=== PATIENT | male | born 1970 | race Two or more races ===

== ENCOUNTER 2017-09-11 10:12 | Inpatient (IN) | payer SELFPAY ==
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
[2017-09-11 11:28] LABS: Hematocrit 39 % (42-52); Hemoglobin 13.1 g/dl (14.0-18.0); Mean Corpuscular HGB Conc 34 g/dl (31-36); Mean Corpuscular Hemoglobin 33 pg (27-31); Mean Corpuscular Volume 99 fL (80-94); Mean Platelet Volume 10 um3 (7.4-10.4); Red Blood Count 3.94 10^6/ul (4.0-5.4); Red Cell Distribution Width 13 % (10.5-15); White Blood Count 13.1 10^3/ul (3.5-10.8)
[2017-09-11 11:30] LABS: Add Diff/Slide Review? Slide Review Added; Comments Flag Yes
[2017-09-11 11:33] LABS: Urine Bacteria Absent (Absent); Urine Bilirubin Negative (Negative); Urine Glucose Negative (Negative); Urine Nitrite Negative (Negative)
[2017-09-11 11:43] LABS: ALT 38 U/L (7-52); AST 55 U/L (13-39); Albumin 4.6 g/dL (3.2-5.2); Alkaline Phosphatase 73 U/L (34-104); Anion Gap 12 mmol/L (2-11); BUN/Creatinine Ratio 26.3 (8-20); Blood Urea Nitrogen 41 mg/dL (6-24); CO2 Carbon Dioxide 24 mmol/L (22-32); Calcium 10.1 mg/dL (8.6-10.3); Chloride 92 mmol/L (101-111); EGFR African American 61.7 (>60); EGFR Non-African American 47.9 (>60); Glucose 82 mg/dL (70-100); Potassium 4.6 mmol/L (3.5-5.0); Sodium 128 mmol/L (133-145); Total Protein 7.6 g/dL (6.4-8.9)
[2017-09-11 11:46] LABS: Benzodiazepine Urine Screen None Detected (None Detect)
[2017-09-11 12:14] LABS: Acetaminophen < 15 mcg/mL; Alcohol < 10 mg/dL (<10); Salicylate < 2.50 mg/dL (<30)
[2017-09-11] MEDS ORDERED: Sulfamethox/Trimethoprim DS 800/160* TAB PO ONE (12:58)
[2017-09-11] MEDS ORDERED: LORazepam TAB(*) 1 MG PO ONE ×3 (13:00→19:24)
[2017-09-11] MEDS: NS 0.9% 1000 ML* 2,000 ML IV ONE ×2 (13:00→13:07)
[2017-09-11 13:26] LABS: Magnesium 1.6 mg/dL (1.9-2.7)
[2017-09-11] MEDS ORDERED: Magnesium Chloride EC TAB* 64 MG PO ONE (13:38)
[2017-09-11] MEDS ORDERED: NS 0.9% 1000 ML* 1,000 ML IV ONE (15:24)
[2017-09-11] MEDS ORDERED: Mouth Piece, Nicotine* 1 EACH CARTRIDGE ONE (16:10)
[2017-09-11] MEDS ORDERED: Nicotine Inhaler* 10 MG AMP ONE (16:10)
[2017-09-11] MEDS: Nicotine Inhaler* 10 MG AMP INH ONE ×2 (16:13→19:54)
[2017-09-11] MEDS ORDERED: Ondansetron INJ* 2 MG/ML VIAL IV PRN (20:15)
[2017-09-11] MEDS ORDERED: Thiamine IV* 100 MG, Folic Acid IV* 1 MG, Multiple Vitamin IV ADULT* 10 ML in NS 0.9% 1... IV ONE (20:15)
[2017-09-11] MEDS ORDERED: Magnesium Sulfate 2 GM IV* 2 GM/50 ML BAG IVPB ONE (20:15)
[2017-09-11] MEDS ORDERED: Acetaminophen TAB* 325 MG PO PRN (20:15)
[2017-09-11] MEDS ORDERED: LORazepam INJ* 2 MG/ML 1 ML VIAL IV PUSH ONE (20:22)
[2017-09-11 20:42] LABS: C Reactive Protein 10.33 mg/L (< 5.00)
[2017-09-11] MEDS ORDERED: ceFAZolin 2 GM PREMIX (*) 2 GM/50 ML BAG IVPB ONE (20:54)
[2017-09-11] MEDS ORDERED: LORazepam INJ* 2 MG/ML 1 ML VIAL IV PUSH SCH (21:00)
[2017-09-11] MEDS: ceFAZolin 2 GM PREMIX (*) 2 GM/50 ML BAG IVPB SCH (21:03)
[2017-09-11 21:06] LABS: Comments Flag Yes; Hematocrit 35 % (42-52); Hemoglobin 11.6 g/dl (14.0-18.0); Mean Corpuscular HGB Conc 34 g/dl (31-36); Mean Corpuscular Hemoglobin 33 pg (27-31); Mean Corpuscular Volume 99 fL (80-94); Mean Platelet Volume 10 um3 (7.4-10.4); Red Blood Count 3.47 10^6/ul (4.0-5.4); Red Cell Distribution Width 14 % (10.5-15); White Blood Count 8.5 10^3/ul (3.5-10.8)
[2017-09-11 21:09] LABS: Erythrocyte Sed Rate 10 mm/Hr (0-14)
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
--- NOTE | 2017-09-11 21:12 | RAD ---
INDICATION: Left ankle swelling COMPARISON: None TECHNIQUE: AP and lateral views were obtained. FINDINGS: The bony structures, joint spaces, and soft tissues are normal for age. IMPRESSION: NEGATIVE EXAMINATION.
[2017-09-11 21:16] LABS: EGFR Non-African American 51.3 (>60)
[2017-09-11] MEDS ORDERED: LORazepam INJ* 2 MG/ML 1 ML VIAL ONE ×3 (21:19→22:38)
[2017-09-11] MEDS ORDERED: LORazepam INJ* 2 MG/ML 1 ML VIAL IV ONE (21:19)
[2017-09-11] MEDS ORDERED: Ziprasidone IM INJ* 20 MG/ML VIAL IM ONE (22:19)
[2017-09-11] MEDS ORDERED: NS 0.9% 1000 ML* 1,000 ML IV SCH (23:30)
[2017-09-12] MEDS: Heparin VIAL(*) 5000 UNITS/ML VIAL (FIVE THOUSAND) SUBCUT SCH ×4 (00:01→20:56)
[2017-09-12] MEDS: Nicotine PATCH 21 MG/24 HR* PATCH TRANSDERM SCH ×2 (00:01→11:22)
[2017-09-12] MEDS: LORazepam INJ* 2 MG/ML 1 ML VIAL IV SCH ×2 (00:01→05:33)
[2017-09-12] MEDS: Metoprolol Tartrate TAB* 50 mg PO SCH ×3 (00:01→20:52)
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
[2017-09-12] MEDS: NS 0.9% 1000 ML* 1,000 ML IV SCH ×3 (00:32→19:16)
[2017-09-12] MEDS ORDERED: LORazepam INJ* 2 MG/ML 1 ML VIAL ONE (01:52)
[2017-09-12] MEDS ORDERED: Ziprasidone IM INJ* 20 MG/ML VIAL IM ONE (03:27)
[2017-09-12] MEDS ORDERED: Dexmedetomidine* 400 MCG in NS 0.9% 100 ML* 96 ML IVPB SCH (03:30)
[2017-09-12 04:11] LABS: Urine Bacteria Absent (Absent); Urine Bilirubin Negative (Negative); Urine Glucose Negative (Negative); Urine Nitrite Negative (Negative)
[2017-09-12 04:54] LABS: Hematocrit 29 % (42-52); Hemoglobin 9.7 g/dl (14.0-18.0); Mean Corpuscular HGB Conc 34 g/dl (31-36); Mean Corpuscular Hemoglobin 34 pg (27-31); Mean Corpuscular Volume 100 fL (80-94); Mean Platelet Volume 9 um3 (7.4-10.4); Red Blood Count 2.86 10^6/ul (4.0-5.4); Red Cell Distribution Width 13 % (10.5-15); White Blood Count 4.9 10^3/ul (3.5-10.8)
[2017-09-12 04:55] LABS: Comments Flag Yes
[2017-09-12 05:25] LABS: BUN/Creatinine Ratio 20.3 (8-20); Calcium 8.1 mg/dL (8.6-10.3); EGFR African American 81.1 (>60); EGFR Non-African American 63.1 (>60); Potassium 3.6 mmol/L (3.5-5.0)
[2017-09-12] MEDS: ceFAZolin 2 GM PREMIX (*) 2 GM/50 ML BAG IVPB SCH ×3 (07:01→20:52)
[2017-09-12] MEDS: Folic Acid TAB* 1 MG PO SCH (11:11)
[2017-09-12] MEDS: Thiamine TAB* 100 MG TAB PO SCH (11:11)
[2017-09-12] MEDS: Multivitamins/Minerals TAB PO SCH (11:11)
--- NOTE | 2017-09-12 13:06 | PN ---
Subjective Date of Service: 09/12/17 Interval History: Seen this AM Events reviewed Received 24 mg of ativan since admission before geodon initiated Agitated overnight and aggressive requiring physical and chemical restraints Pt sedated and cannot relay meaningful ROS Objective Active Medications: Folic Acid (Folvite Tab*) 1 mg PO DAILY [facility] Last Admin: 09/12/17 11:11 Dose: 1 mg Heparin Sodium (Porcine) (Heparin Vial(*)) 5,000 units SUBCUT Q8HR [facility] Last Admin: 09/12/17 07:01 Dose: 5,000 units Cefazolin Sodium/Dextrose (Kefzol 2 Gm Premix(*)) 2 gm in 50 mls @ 100 mls/hr IVPB Q8H [facility] Last Admin: 09/12/17 07:01 Dose: 100 mls/hr Sodium Chloride (Ns 0.9% 1000 Ml*) 1,000 mls @ 125 mls/hr IV PER RATE [facility] Last Admin: 09/12/17 09:14 Dose: 125 mls/hr Dexmedetomidine HCl 400 mcg/ (Sodium Chloride) 100 mls @ 5.82 mls/hr IVPB Q17H [facility]; 0.3 MCG/KG/HR PRN Reason: Protocol Last Admin: 09/12/17 03:35 Dose: 5.8 mls/hr Lorazepam (Ativan Inj*) 0 - 6 mg IV PUSH .PER [facility] PROTOCOL [facility] PRN Reason: Protocol Metoprolol Tartrate (Lopressor Tab*) 50 mg PO BID [facility] Last Admin: 09/12/17 11:14 Dose: 50 mg Multivitamins/Minerals (Theragran/Minerals Tab*) 1 tab PO DAILY [facility] Last Admin: 09/12/17 11:11 Dose: 1 tab Nicotine (Nicotine Inhaler*) 10 mg INH Q2H PRN PRN Reason: CRAVING Nicotine (Nicotine Patch 21 Mg/24 Hr*) 1 patch TRANSDERM DAILY [facility] Last Admin: 09/12/17 11:22 Dose: 1 patch Ondansetron HCl (Zofran Inj*) 4 mg IV Q6H PRN PRN Reason: NAUSEA Pharmacy Profile Note (Nicotine Patch Removal Note*) 1 note PATCH OFF 2100 [facility] Thiamine HCl (Vitamin B-1 Tab*) 100 mg PO DAILY [facility] Last Admin: 09/12/17 11:11 Dose: 100 mg Vital Signs - 8 hr 09/12/17 09/12/1709/12/17 05:06 05:15 05:30 Temperature Pulse Rate 97 98 88 Respiratory Rate Blood Pressure 105/52 107/60 (mmHg) O2 Sat by Pulse 94 95 97 Oximetry 09/12/17 09/12/17 09/12/17 05:33 05:45 06:00 Temperature 99.0 F Pulse Rate 84 84 Respiratory 11 26 Rate Blood Pressure 111/63 116/70 (mmHg) O2 Sat by Pulse 97 96 Oximetry 09/12/17 09/12/17 09/12/17 06:15 06:30 06:45 Temperature Pulse Rate 79 74 79 Respiratory Rate Blood Pressure 106/60 119/73 119/70 (mmHg) O2 Sat by Pulse 97 98 97 Oximetry 09/12/17 09/12/17 09/12/17 06:59 07:00 07:15 Temperature 97.7 F Pulse Rate 78 77 73 Respiratory 26 Rate Blood Pressure 107/59 113/67 (mmHg) O2 Sat by Pulse 97 97 98 Oximetry 09/12/17 09/12/17 09/12/17 07:30 07:40 07:45 Temperature Pulse Rate 76 76 73 Respiratory Rate Blood Pressure 113/70 114/67 (mmHg) O2 Sat by Pulse 97 97 98 Oximetry 09/12/17 09/12/17 09/12/17 07:46 07:57 08:00 Temperature 97.5 F 97.4 F Pulse Rate 72 Respiratory 27 Rate Blood Pressure 107/61 (mmHg) O2 Sat by Pulse 98 Oximetry 09/12/17 09/12/17 09/12/17 08:15 08:31 08:45 Temperature Pulse Rate 73 85 75 Respiratory Rate Blood Pressure 107/63 137/93 132/80 (mmHg) O2 Sat by Pulse 97 100 99 Oximetry 09/12/17 09/12/17 09/12/17 08:50 09:00 09:13 Temperature 97.2 F Pulse Rate 74 72 69 Respiratory 26 Rate Blood Pressure 107/67 (mmHg) O2 Sat by Pulse 99 98 98 Oximetry 09/12/17 09/12/17 09/12/17 09:15 09:30 09:38 Temperature Pulse Rate 69 66 Respiratory Rate Blood Pressure 106/69 103/68 (mmHg) O2 Sat by Pulse 98 98 99 Oximetry 09/12/17 09/12/17 09/12/17 09:45 10:00 10:01 Temperature 97.1 F Pulse Rate 67 69 69 Respiratory 24 Rate Blood Pressure 102/68 123/86 (mmHg) O2 Sat by Pulse 98 100 100 Oximetry 09/12/17 09/12/17 09/12/17 10:15 10:30 10:45 Temperature Pulse Rate 68 66 89 Respiratory Rate Blood Pressure 115/68 114/69 123/105 (mmHg) O2 Sat by Pulse 98 99 99 Oximetry 09/12/17 09/12/17 09/12/17 10:55 11:00 11:04 Temperature 97.5 F Pulse Rate Respiratory 22 Rate Blood Pressure 134/90 (mmHg) O2 Sat by Pulse Oximetry 09/12/17 09/12/17 09/12/17 11:16 11:31 11:46 Temperature Pulse Rate Respiratory 22 16 18 Rate Blood Pressure 141/88 85/62 136/81 (mmHg) O2 Sat by Pulse Oximetry 09/12/17 09/12/17 09/12/17 11:49 12:00 12:15 Temperature 97.1 F Pulse Rate Respiratory 23 28 Rate Blood Pressure 119/79 122/81 (mmHg) O2 Sat by Pulse Oximetry 09/12/17 09/12/17 09/12/17 12:23 12:30 12:45 Temperature Pulse Rate Respiratory 24 24 25 Rate Blood Pressure 123/84 118/81 (mmHg) O2 Sat by Pulse Oximetry 09/12/17 09/12/17 12:49 12:51 Temperature Pulse Rate Respiratory 23 23 Rate Blood Pressure (mmHg) O2 Sat by Pulse Oximetry Oxygen Devices in Use Now: None Appearance: sedated, lying flat, NAD Eyes: No Scleral Icterus, PERRLA Ears/Nose/Mouth/Throat: Clear Oropharnyx Neck: NL Appearance and Movements; NL JVP, Trachea Midline Respiratory: Symmetrical Chest Expansion and Respiratory Effort, - - rhoncgi throughout Cardiovascular: RRR Abdominal: NL Sounds; No Tenderness; No Distention, No Hepatosplenomegaly Lymphatic: No Cervical Adenopathy, No Axillary Adenopathy Extremities: No Edema, - - left AKA Skin: - - minimal erythema of right foot extending to ankle Neurological: - - AOx0 Result Diagrams: 09/12/17 04:39 09/12/17 04:39 Assess/Plan/Problems-Billing Assessment: 47 yo M h/o bipolar d/o, alcohol abuse, presents with visual and auditory hallucinations in setting of possible infection and alcohol withdrawal - Patient Problems (1) Alcohol withdrawal delirium Comment: d/c standing ativan d/c connie c/w [facility] protocol thiamine and folate (2) Cellulitis Comment: Improved based on exam from yesterday I do not see e/o sepsis - resolved since admission c/w IV abc and narrow to oral when awake and able to tolerate (3) Bipolar disorder Comment: c/b paroid behavior and hallucinations in setting of comorbid alcohol abuse disorder Psych consult once able after sedating medication titrated down (4) Hypertension Comment: c/w metoprolol last seen by PCP >1.5 yrs prior (5) DVT prophylaxis Comment: [facility]
[2017-09-12] MEDS: Nicotine Inhaler* 10 MG AMP INH PRN ×2 (16:27→22:56)
[2017-09-12] MEDS: Mouth Piece, Nicotine* 1 EACH CARTRIDGE ONE ×2 (16:27→22:55)
[2017-09-12] MEDS ORDERED: Nicotine Patch Removal NOTE PATCH OFF SCH (21:00)
[2017-09-12] MEDS ORDERED: Mouth Piece, Nicotine* 1 EACH CARTRIDGE ONE (22:53)
[2017-09-12] MEDS: LORazepam INJ* 2 MG/ML 1 ML VIAL IV PUSH SCH (23:37)
[2017-09-13] MEDS: traMADol TAB* 50 MG PO PRN ×2 (00:10→08:13)
[2017-09-13] MEDS: ceFAZolin 2 GM PREMIX (*) 2 GM/50 ML BAG IVPB SCH ×2 (04:22→13:20)
[2017-09-13] MEDS: NS 0.9% 1000 ML* 1,000 ML IV SCH (04:22)
[2017-09-13] MEDS: Heparin VIAL(*) 5000 UNITS/ML VIAL (FIVE THOUSAND) SUBCUT SCH (04:22)
[2017-09-13] MEDS: Nicotine Inhaler* 10 MG AMP INH PRN (04:28)
[2017-09-13] MEDS ORDERED: Omeprazole CAP* 20 MG ONE (04:36)
[2017-09-13] MEDS: Omeprazole CAP* 20 MG PO SCH ×2 (04:38→08:11)
[2017-09-13] MEDS: LORazepam INJ* 2 MG/ML 1 ML VIAL IV PUSH SCH ×2 (04:38→08:17)
[2017-09-13] MEDS: Metoprolol Tartrate TAB* 50 mg PO SCH (08:11)
[2017-09-13] MEDS: Folic Acid TAB* 1 MG PO SCH (08:11)
[2017-09-13] MEDS: Multivitamins/Minerals TAB PO SCH (08:11)
[2017-09-13] MEDS: Thiamine TAB* 100 MG TAB PO SCH (08:11)
[2017-09-13] MEDS: Nicotine PATCH 21 MG/24 HR* PATCH TRANSDERM SCH (08:18)
[2017-09-13] MEDS ORDERED: Influenza VAC *QUAD* 2017-18* 0.5 ML SYRINGE IM ONE (09:00)
[2017-09-13] MEDS ORDERED: Pneumococcal *Vac Polyvalent 0.5 ML VIAL IM ONE (09:00)
[2017-09-13 13:29] VITALS: BP 135/103
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
--- NOTE | 2017-09-14 11:04 | DS ---
CC: Nolan Weldon MD* DISCHARGE SUMMARY: DATE OF ADMISSION: 09/11/17 DATE OF DISCHARGE: 09/13/17 PRIMARY CARE PROVIDER: Nolan Weldon MD PRIMARY DIAGNOSIS: Alcohol use disorder complicated by delirium tremens. SECONDARY DIAGNOSIS: Includes hypertension. MEDICATIONS AT DISCHARGE: Include: 1. Omeprazole 20 mg daily. 2. Multivitamin 1 tablet daily. 3. Zantac OTC 1 tablet as needed daily. 4. Metoprolol tartrate 50 mg twice daily. 5. Lisinopril 10 mg daily. 6. Amlodipine 10 mg daily. 7. Antabuse 250 mg daily. HISTORY OF PRESENT ILLNESS AND HOSPITAL COURSE: This is a 47-year-old man, past medical history as outlined in the history of present illness on the day of admission, presented to the hospital after decreasing alcohol use at home of his own accord with ensuing days complicated by withdrawal symptoms including visual hallucinations and paranoia on the day of admission. For details surrounding the events leading to the patient's admission, please refer to the history of present illness on the day of admission. The patient had significant agitation after admitted to the hospital in the setting of delirium tremens, required 24 mg of Ativan in the ICU before initiation of Geodon IV drip. This medication was discontinued the following day and the patient returned to a normal level of consciousness with minimal use of benzodiazepines over the ensuing 48 hours. On the day of discharge, the patient was interactive , pleasant, and in no apparent distress. Psychiatric consultation was obtained and their evaluation, the patient does not fully meet criteria for bipolar disorder at this time nor has events reported by his primary care provider in the past. I agree with this finding after our interactions during this hospital stay as well as review of events leading to this diagnosis. He was not discharged on any mood stabilizer. The patient was interested in pursuing rehabilitation, for which he was referred to [facility] in [place]. Additionally, the patient requested "a medication that would make it difficult for me to drink alcohol", for which he was prescribed Antabuse on discharge. There were no other complications during the course of the hospital stay. The patient did have amlodipine added to his antihypertensive regimen for persistently high blood pressures. At followup, please; 1. Follow up on success with alcohol abstinence. 2. Follow up blood pressure and new medications. 3. No other specific labs or vitals that need followup. Reasons to return to the hospital included but not limited to recurrent or worsening symptoms including hallucinations, altered sensorium, loss of consciousness, fevers, chills, night sweats, chest pain, shortness of breath, nausea, vomiting, inability to tolerate medications discussed with the patient. He acknowledged understanding. TIME SPENT: Greater than 60 minutes was spent in the discharge of this patient , greater than half was spent [id number] with the patient. [id number]/[facility] #: [id number] JANNIE
== END 2017-09-13 13:25 | disposition home or self-care (01) | DRG 897 ==
LOC: ED 10:12 → ICU 20:10 → MED 09-12 20:25
PROVIDERS: ADMIT Hospitalist; ATTEND Internal Medicine
DX: F10.231 Alcohol dependence with withdrawal delirium (principal); L03.115 Cellulitis of right lower limb; I10 Essential (primary) hypertension; F17.210 Nicotine dependence, cigarettes, uncomplicated; K21.9 Gastro-esophageal reflux disease without esophagitis; M17.11 Unilateral primary osteoarthritis, right knee; F12.90 Cannabis use, unspecified, uncomplicated; R40.2362 Coma scale, best motor response, obeys commands, at arrival to emergency department; R40.2142 Coma scale, eyes open, spontaneous, at arrival to emergency department; F31.9 Bipolar disorder, unspecified; Y90.9 Presence of alcohol in blood, level not specified; R40.2252 Coma scale, best verbal response, oriented, at arrival to emergency department; Z89.522 Acquired absence of left knee; Z81.1 Family history of alcohol abuse and dependence; Z82.5 Family history of asthma and other chronic lower respiratory diseases; Z82.49 Family history of ischemic heart disease and other diseases of the circulatory system
CPT/HCPCS: 36415; 80048; 80053; 80307; 80320; 80329; 81003; 81015; 82565; 82570; 83605; 83735; 84145; 84300; 84443; 84520; 85025; 85610; 85652; 85730; 86140; 87040; 87086; 87491; 87591; 90686; 90732; 93005; 94760; A9270-GY; G0480; J0690; J1644; J2060; J3475; J3486

== ENCOUNTER 2018-04-25 21:46 | Inpatient (IN) | payer OTHER ==
[2018-04-25] MEDS ORDERED: LORazepam INJ* 2 MG/ML 1 ML VIAL IV PUSH ONE ×2 (22:43→22:58)
[2018-04-25] MEDS ORDERED: Thiamine IV* 100 MG, Folic Acid IV* 1 MG, Multiple Vitamin IV ADULT* 10 ML in NS 0.9% 1... IV ONE (22:43)
[2018-04-25 22:58] LABS: ABS Basophils 0.3 10^3/ul (0-0.2); ABS Eosinophils 0.1 10^3/ul (0-0.6); ABS Lymphocytes 2.5 10^3/ul (1.0-4.8); ABS Monocytes 0.5 10^3/ul (0-0.8); ABS Neutrophils 3.7 10^3/ul (1.5-7.7); ABS Nucleated RBC 0 10^3/ul; Eosinophil % 1.8 % (0-6); Hematocrit 39 % (42-52); Hemoglobin 13.2 g/dl (14.0-18.0); Lymphocyte % 35.5 % (25-47); Mean Corpuscular HGB Conc 34 g/dl (31-36); Mean Corpuscular Hemoglobin 34 pg (27-31); Mean Corpuscular Volume 99 fL (80-94); Mean Platelet Volume 7.1 um3 (7.4-10.4); Nucleated Red Blood Cells % 0; Platelet Count 157 10^3/ul (150-450); Red Cell Distribution Width 14 % (10.5-15); White Blood Count 7.1 10^3/ul (3.5-10.8)
[2018-04-25] MEDS ORDERED: Metoprolol Tartrate TAB* 25 MG PO ONE (22:58)
[2018-04-25] MEDS ORDERED: Nicotine PATCH 21 MG/24 HR* PATCH TRANSDERM ONE (23:01)
[2018-04-25 23:07] LABS: INR 0.87 (0.77-1.02)
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
[2018-04-25] MEDS ORDERED: Ondansetron INJ* 2 MG/ML VIAL IV ONE (23:12)
[2018-04-25 23:16] LABS: EGFR Non-African American 73.3 (>60)
[2018-04-26] MEDS ORDERED: Al Hydrox/Mg Hydrox/Simet LIQ* 30 ML UDC PO PRN (00:12)
[2018-04-26] MEDS ORDERED: Docusate CAP* 100 MG PO PRN (00:12)
[2018-04-26] MEDS ORDERED: Senna TAB PO PRN (00:12)
[2018-04-26] MEDS ORDERED: Ondansetron INJ* 2 MG/ML VIAL IV PRN (00:12)
[2018-04-26] MEDS ORDERED: Thiamine IV* 100 MG/ML 2 ML VIAL IM ONE (00:15)
[2018-04-26] MEDS: Acetaminophen TAB* 325 MG PO PRN ×2 (01:42→20:29)
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
[2018-04-26] MEDS: NS 0.9% 1000 ML* 1,000 ML IV SCH ×3 (02:07→18:01)
--- NOTE | 2018-04-26 07:19 | RAD ---
INDICATION: Left rib pain after a fall COMPARISON: None. TECHNIQUE: 4 views of the left ribs were obtained. FINDINGS: No fracture or significant focal osseous abnormality is seen. No pneumothorax is apparent. Limited views demonstrate grossly clear lungs. IMPRESSION: No radiographically apparent displaced rib fracture or pneumothorax. If the patient's symptoms persist, follow-up imaging is recommended.
[2018-04-26] MEDS: Metoprolol Tartrate TAB* 50 mg PO SCH ×2 (07:49→20:28)
[2018-04-26] MEDS: LORazepam TAB(*) 1 MG PO SCH ×3 (07:49→13:52)
[2018-04-26] MEDS: Thiamine TAB* 100 MG TAB PO SCH (07:49)
[2018-04-26] MEDS: Folic Acid TAB* 1 MG PO SCH (07:49)
[2018-04-26] MEDS: Multivitamins/Minerals TAB PO SCH (07:49)
[2018-04-26] MEDS ORDERED: Nicotine PATCH 21 MG/24 HR* PATCH TRANSDERM PRN (13:35)
[2018-04-26] MEDS: Nicotine Inhaler* 10 MG AMP INH PRN ×2 (13:52→18:06)
[2018-04-26] MEDS: Mouth Piece, Nicotine* 1 EACH CARTRIDGE INH PRN ×2 (13:52→18:06)
--- NOTE | 2018-04-26 15:25 | PN ---
Subjective Date of Service: 04/26/18 Interval History: Mr. Simon denies complaint today other than craving for nicotine. He specifically denies chest pain, SOB, nausea, or abdominal pain. Objective Active Medications: Acetaminophen (Tylenol Tab*) 650 mg PO Q4H PRN Al Hydrox/Mg Hydrox/Simethicone (Maalox Plus*) 30 ml PO Q6H PRN Device (Nicotine Mouth Piece*) 1 each INH .USE WITH NICOTROL PRN Docusate Sodium (Colace Cap*) 100 mg PO BID PRN Folic Acid (Folvite Tab*) 1 mg PO DAILY HOWIE Sodium Chloride (Ns 0.9% 1000 Ml*) 1,000 mls @ 125 mls/hr IV PER RATE HOWIE Lorazepam (Ativan Tab(*)) 0 - 6 mg PO .PER [facility] PROTOCOL HOWIE; Protocol Metoprolol Tartrate (Lopressor Tab*) 50 mg PO Q12HR [facility] Multivitamins/Minerals (Theragran/Minerals Tab*) 1 tab PO DAILY HOWIE Nicotine (Nicotine Inhaler*) 10 mg INH Q2H PRN Nicotine (Nicotine Patch 21 Mg/24 Hr*) 1 patch TRANSDERM DAILY@0800 PRN Nicotine Polacrilex (Nicotine Gum*) 2 mg PO Q2H PRN Ondansetron HCl (Zofran Inj*) 4 mg IV Q4H PRN Senna (Senokot Tab*) 1 tab PO BID PRN Thiamine HCl (Vitamin B-1 Tab*) 100 mg PO DAILY [facility] Vital Signs: Temp Pulse Resp BP Pulse Ox 98.6 F 89 17 145/98 99 04/26/18 15:19 04/26/18 15:19 04/26/18 15:19 04/26/18 15:19 04/26/18 15:19 Oxygen Devices in Use Now: None Appearance: Male lying in bed in NAD Eyes: No Scleral Icterus Ears/Nose/Mouth/Throat: Mucous Membranes Moist Neck: Trachea Midline Respiratory: Symmetrical Chest Expansion and Respiratory Effort, Clear to Auscultation Cardiovascular: NL Sounds; No Murmurs; No JVD, No Edema Abdominal: NL Sounds; No Tenderness; No Distention Extremities: No Edema Skin: No Rash or Ulcers Neurological: Alert and Oriented x 3, NL Muscle Strength and Tone Nutrition: Taking PO's Result Diagrams: 04/25/18 22:48 04/25/18 22:48 Assess/Plan/Problems-Billing Assessment: Mr. Simon is a 47 yo male with a PMH of alcoholism who was admitted on 04/25/18 with alcohol withdrawal. - Patient Problems (1) Alcohol withdrawal Comment: - Continue WAM protocol with ativan prn. - Continue IVF, folate, and thiamine. (2) Hypertension Comment: - BP elevated in setting of alcohol withdrawal. - Continue metoprolol (3) DVT prophylaxis Comment: - HSQ (4) Full code status Comment: Status and Disposition: Switch from OBV to inpatient. Anticipate discharge to home when medically stable.
[2018-04-27] MEDS: NS 0.9% 1000 ML* 1,000 ML IV SCH ×3 (02:09→19:09)
[2018-04-27] MEDS: Acetaminophen TAB* 325 MG PO PRN (04:14)
[2018-04-27] MEDS: Multivitamins/Minerals TAB PO SCH (08:05)
[2018-04-27] MEDS: Thiamine TAB* 100 MG TAB PO SCH (08:05)
[2018-04-27] MEDS: Folic Acid TAB* 1 MG PO SCH (08:05)
[2018-04-27] MEDS: Metoprolol Tartrate TAB* 50 mg PO SCH ×2 (08:05→20:57)
--- NOTE | 2018-04-27 08:36 | PN ---
Subjective Date of Service: 04/27/18 Interval History: Mr. Simon reports feeling better today though he continues to feel sweaty with palpitations at times. He also notes that he has always had his worst symptoms at 48-72 hours after he stops drinking. He denies chest pain, SOB, nausea, or abdominal pain. Objective Active Medications: Acetaminophen (Tylenol Tab*) 650 mg PO Q4H PRN Al Hydrox/Mg Hydrox/Simethicone (Maalox Plus*) 30 ml PO Q6H PRN Device (Nicotine Mouth Piece*) 1 each INH .USE WITH NICOTROL PRN Docusate Sodium (Colace Cap*) 100 mg PO BID PRN Folic Acid (Folvite Tab*) 1 mg PO DAILY HOWIE Sodium Chloride (Ns 0.9% 1000 Ml*) 1,000 mls @ 125 mls/hr IV PER RATE HOWIE Lorazepam (Ativan Tab(*)) 0 - 6 mg PO .PER [facility] PROTOCOL HOWIE; Protocol Metoprolol Tartrate (Lopressor Tab*) 50 mg PO Q12HR HOWIE Multivitamins/Minerals (Theragran/Minerals Tab*) 1 tab PO DAILY HOWIE Nicotine (Nicotine Inhaler*) 10 mg INH Q2H PRN Nicotine (Nicotine Patch 21 Mg/24 Hr*) 1 patch TRANSDERM DAILY@0800 PRN Nicotine Polacrilex (Nicotine Gum*) 2 mg PO Q2H PRN Ondansetron HCl (Zofran Inj*) 4 mg IV Q4H PRN Senna (Senokot Tab*) 1 tab PO BID PRN Thiamine HCl (Vitamin B-1 Tab*) 100 mg PO DAILY HOWIE Tramadol HCl (Ultram*) 50 mg PO Q6H PRN Vital Signs: Temp Pulse Resp BP Pulse Ox 98.7 F 87 18 160/103 100 04/27/18 16:02 04/27/18 16:02 04/27/18 16:02 04/27/18 16:02 04/27/18 16:02 Oxygen Devices in Use Now: None Appearance: Male lying in bed in NAD Eyes: No Scleral Icterus Ears/Nose/Mouth/Throat: Mucous Membranes Moist Respiratory: Symmetrical Chest Expansion and Respiratory Effort, Clear to Auscultation Cardiovascular: NL Sounds; No Murmurs; No JVD, No Edema Abdominal: NL Sounds; No Tenderness; No Distention Extremities: No Edema Skin: No Rash or Ulcers Neurological: Alert and Oriented x 3, NL Muscle Strength and Tone Nutrition: Taking PO's Result Diagrams: 04/25/18 22:48 04/25/18 22:48 Assess/Plan/Problems-Billing Assessment: Mr. Simon is a 47 yo male with a PMH of alcoholism who was admitted on 04/25/18 with alcohol withdrawal. - Patient Problems (1) Alcohol withdrawal Comment: - Continue WAM protocol with ativan prn. - Continue IVF, folate, and thiamine. - Patient requesting naltrexone at discharge. (2) Hypertension Comment: - BP elevated in setting of alcohol withdrawal. - Continue metoprolol (3) DVT prophylaxis Comment: - HSQ (4) Full code status Comment: Status and Disposition: Switch from OBV to inpatient. Anticipate discharge to home when medically stable.
[2018-04-27] MEDS: traMADol TAB* 50 MG PO PRN ×3 (08:57→23:14)
[2018-04-27] MEDS: Nicotine Inhaler* 10 MG AMP INH PRN ×5 (08:57→23:27)
[2018-04-27] MEDS: Nicotine GUM* 2 MG PO PRN ×2 (11:16→19:07)
[2018-04-27] MEDS: LORazepam TAB(*) 1 MG PO SCH (23:26)
[2018-04-27] MEDS ORDERED: hydrALAZINE IV* 20 MG/ML VIAL IV SLOW PU PRN (23:37)
[2018-04-28] MEDS: NS 0.9% 1000 ML* 1,000 ML IV SCH (03:24)
[2018-04-28] MEDS: traMADol TAB* 50 MG PO PRN ×2 (03:33→07:25)
--- NOTE | 2018-04-28 06:48 | PN ---
Subjective Date of Service: 04/28/18 Interval History: Mr. Simon reports feeling very well this morning and is eager for discharge to home. He is hopeful that he will be able to abstain from alcohol. Objective Active Medications: Acetaminophen (Tylenol Tab*) 650 mg PO Q4H PRN Al Hydrox/Mg Hydrox/Simethicone (Maalox Plus*) 30 ml PO Q6H PRN Device (Nicotine Mouth Piece*) 1 each INH .USE WITH NICOTROL PRN Docusate Sodium (Colace Cap*) 100 mg PO BID PRN Folic Acid (Folvite Tab*) 1 mg PO DAILY HOWIE Hydralazine HCl (Apresoline Iv*) 5 mg IV SLOW PU Q6H PRN Sodium Chloride (Ns 0.9% 1000 Ml*) 1,000 mls @ 125 mls/hr IV PER RATE HOWIE Lorazepam (Ativan Tab(*)) 0 - 6 mg PO .PER [facility] PROTOCOL HOWIE; Protocol Metoprolol Tartrate (Lopressor Tab*) 50 mg PO Q12HR [facility] Multivitamins/Minerals (Theragran/Minerals Tab*) 1 tab PO DAILY HOWIE Nicotine (Nicotine Inhaler*) 10 mg INH Q2H PRN Nicotine (Nicotine Patch 21 Mg/24 Hr*) 1 patch TRANSDERM DAILY@0800 PRN Nicotine Polacrilex (Nicotine Gum*) 2 mg PO Q2H PRN Ondansetron HCl (Zofran Inj*) 4 mg IV Q4H PRN Senna (Senokot Tab*) 1 tab PO BID PRN Thiamine HCl (Vitamin B-1 Tab*) 100 mg PO DAILY HOWIE Tramadol HCl (Ultram*) 50 mg PO Q4H PRN Vital Signs: Temp Pulse Resp BP Pulse Ox 98.0 F 92 18 148/97 100 04/28/18 06:10 04/28/18 06:10 04/28/18 06:10 04/28/18 06:10 04/28/18 06:10 Oxygen Devices in Use Now: None Appearance: Male lying in bed in NAD Eyes: No Scleral Icterus Ears/Nose/Mouth/Throat: Mucous Membranes Moist Neck: Trachea Midline Respiratory: Symmetrical Chest Expansion and Respiratory Effort, Clear to Auscultation Cardiovascular: NL Sounds; No Murmurs; No JVD, No Edema Abdominal: NL Sounds; No Tenderness; No Distention Extremities: No Edema Skin: No Rash or Ulcers Neurological: Alert and Oriented x 3, NL Muscle Strength and Tone Nutrition: Taking PO's Result Diagrams: 04/25/18 22:48 04/25/18 22:48 Assess/Plan/Problems-Billing Assessment: Mr. Simon is a 47 yo male with a PMH of alcoholism who was admitted on 04/25/18 with alcohol withdrawal. - Patient Problems (1) Alcohol withdrawal Comment: - Resolved. - Patient requesting naltrexone at discharge. (2) Hypertension Comment: - SBP 140-160s. - Continue increased dose metoprolol, follow up with PCP. (3) DVT prophylaxis Comment: - HSQ (4) Full code status Comment: Status and Disposition: Discharge to home.
[2018-04-28] MEDS: Metoprolol Tartrate TAB* 50 mg PO SCH (07:25)
[2018-04-28] MEDS: Multivitamins/Minerals TAB PO SCH (07:25)
[2018-04-28] MEDS: Folic Acid TAB* 1 MG PO SCH (07:25)
[2018-04-28] MEDS: Nicotine Inhaler* 10 MG AMP INH PRN (07:26)
[2018-04-28] MEDS: Thiamine TAB* 100 MG TAB PO SCH (07:26)
[2018-04-28 07:43] VITALS: BP 155/109
--- NOTE | 2018-04-28 14:12 | DS ---
CC: Dr. Weldon * DISCHARGE SUMMARY: DATE OF ADMISSION: 04/26/18 DATE OF DISCHARGE: 04/28/18 ATTENDING PHYSICIAN: Dr. Juan Carlos Oliva * (dictation provided by Hien Palma NP). PRIMARY DIAGNOSIS: Alcohol withdrawal. SECONDARY DIAGNOSIS: Hypertension. MEDICATIONS AT THE TIME OF DISCHARGE: 1. Metoprolol tartrate 50 mg p.o. b.i.d. 2. Naltrexone 50 mg p.o. daily. 3. Omeprazole 20 mg p.o. daily. 4. Multivitamin with mineral one tab p.o. daily. 5. Nicotine replacement therapy p.r.n. HOSPITAL COURSE: Mr. Simon is a 47-year-old male with a past medical history of alcoholism and hypertension who presented to the hospital on 04/26/18 with concern for alcohol withdrawal. Please see dictated H and P from Sarah Marc DO for complete details. In brief, patient reports he drinks about 1 L vodka per day for the past several years. In the past, he has had withdrawal symptoms of hallucination and altered mental status. His last drink was at 11 o'clock the morning prior to admission. He describes falling at home and having some left sided upper rib pain. In the emergency room, his labs show a macrocytic anemia as expected with his history of alcoholism. His alcohol level was 359. He did have a rib x-ray that showed no radiographic appearance of displaced rib fracture or pneumothorax. Mr. Simon was admitted to the hospital for alcohol withdrawal. He was treated with Ativan p.r.n. for symptoms. He received IV fluids and supplementation with thiamine and folate. Mr. Simon is doing much better today. He has had no further alcohol withdrawal symptoms. His vital signs are stable. He has evidenced some uncontrolled hypertension while in the hospital. Certainly part of this was secondary to alcohol withdrawal, but I have increased his metoprolol from 25 mg b.i.d. to 50 mg b.i.d. for this reason. His blood pressure is running systolically about 140s to 160s suggesting that he will likely need some further titration as outpatient. Mr. Simon is medically stable for discharge to home. He has requested a prescription for naltrexone and based on the available evidence to support the use of this medication for alcohol abuse disorder, I have prescribed that to him. He has also been provided with prescription for multiple types of nicotine replacement therapy to help with smoking cessation. DISPOSITION: Home. DIET: Low salt. ACTIVITY: As tolerated. FOLLOWUP PLAN: Please follow up with Dr. Weldon within the next week. TIME SPENT: Approximately 60 minutes were spent on the discharge of this patient, more than half the time was spent with the patient at the bedside reviewing the events leading up to this hospitalization, performing the physical examination and reviewing the plan of care. HIEN PALMA NP [id number]/[facility] #: [id number] JANNIE
== END 2018-04-28 11:00 | disposition home or self-care (01) | DRG 775 ==
LOC: ED 21:46 → MED 04-26 00:12 → OBSVTOIN 04-26 11:45
PROVIDERS: ADMIT Pediatrics; ATTEND Internal Medicine
DX: F10.239 Alcohol dependence with withdrawal, unspecified (principal); Y90.8 Blood alcohol level of 240 mg/100 ml or more; I10 Essential (primary) hypertension; F17.210 Nicotine dependence, cigarettes, uncomplicated; G47.30 Sleep apnea, unspecified; E73.9 Lactose intolerance, unspecified; F12.90 Cannabis use, unspecified, uncomplicated; D53.9 Nutritional anemia, unspecified; R07.81 Pleurodynia; K21.9 Gastro-esophageal reflux disease without esophagitis; F31.9 Bipolar disorder, unspecified; M17.11 Unilateral primary osteoarthritis, right knee; Z89.522 Acquired absence of left knee; Z81.1 Family history of alcohol abuse and dependence
CPT/HCPCS: 36415; 80053; 80320; 82550; 85025; 85610; 85730; 99283; A9270-GY; G0378; G0480; J0360; J2060; J2405; J3411

== ENCOUNTER 2018-09-05 12:33 | Observation (INO) | payer SELFPAY ==
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
[2018-09-05] MEDS ORDERED: Nicotine Inhaler* 10 MG AMP INH PRN (12:48)
[2018-09-05] MEDS ORDERED: Mouth Piece, Nicotine* 1 EACH CARTRIDGE INH PRN (12:52)
[2018-09-05 13:16] LABS: ABS Basophils 0 10^3/ul (0-0.2); ABS Eosinophils 0.1 10^3/ul (0-0.6); ABS Lymphocytes 1.6 10^3/ul (1.0-4.8); ABS Monocytes 1.2 10^3/ul (0-0.8); ABS Neutrophils 7.6 10^3/ul (1.5-7.7); ABS Nucleated RBC 0 10^3/ul; Eosinophil % 0.6 %; Hematocrit 42 % (42-52); Hemoglobin 13.9 g/dl (14.0-18.0); Lymphocyte % 15.3 %; Mean Corpuscular HGB Conc 33 g/dl (31-36); Mean Corpuscular Hemoglobin 32 pg (27-31); Mean Corpuscular Volume 97 fL (80-94); Mean Platelet Volume 9.1 fL (7.4-10.4); Nucleated Red Blood Cells % 0; Platelet Count 151 10^3/ul (150-450); Red Cell Distribution Width 15 % (10.5-15); White Blood Count 10.5 10^3/ul (3.5-10.8)
[2018-09-05 13:30] LABS: EGFR Non-African American 67.2 (>60)
[2018-09-05] MEDS ORDERED: LORazepam TAB(*) 1 MG PO ONE (13:56)
[2018-09-05] MEDS ORDERED: Folic Acid TAB* 1 MG PO ONE (13:56)
[2018-09-05] MEDS ORDERED: Thiamine TAB* 100 MG TAB PO ONE (13:56)
[2018-09-05 14:13] LABS: Urine Appearance Cloudy; Urine Blood 1+ (Negative); Urine Color Yellow; Urine Ketones Negative (Negative); Urine Protein 1+(30 mg/dL) (Negative); Urine Red Blood Cell 3+(>10/hpf) (Absent); Urine Specific Gravity 1.014 (1.010-1.030); Urine Urobilinogen Negative (Negative); Urine White Blood Cell 3+(>20/hpf) (Absent)
[2018-09-05] MEDS ORDERED: Ciprofloxacin TAB* 500 MG PO ONE (14:57)
[2018-09-05] MEDS ORDERED: LORazepam TAB(*) 1 MG PO PRN (14:58)
[2018-09-05] MEDS ORDERED: Acetaminophen TAB* 325 MG PO PRN ×2 (15:40→19:30)
[2018-09-05] MEDS ORDERED: Thiamine IV* 100 MG/ML 2 ML VIAL IM ONE (15:40)
[2018-09-05] MEDS ORDERED: LORazepam INJ* 2 MG/ML 1 ML VIAL IV PUSH ONE (17:57)
[2018-09-05] MEDS ORDERED: Thiamine IV* 100 MG/ML 2 ML VIAL IV ONE (17:57)
[2018-09-05] MEDS ORDERED: Ondansetron INJ* 2 MG/ML VIAL IV PRN (19:30)
[2018-09-05] MEDS ORDERED: Thiamine IV 100 MG, Folic Acid IV* 1 MG, Multiple Vitamin IV ADULT* 10 ML in NS 0.9% 10... IV ONE (19:30)
[2018-09-05 20:19] LABS: ABS Basophils 0.1 10^3/ul (0-0.2); ABS Eosinophils 0.1 10^3/ul (0-0.6); ABS Lymphocytes 1.9 10^3/ul (1.0-4.8); ABS Monocytes 1.4 10^3/ul (0-0.8); ABS Neutrophils 6.2 10^3/ul (1.5-7.7); ABS Nucleated RBC 0 10^3/ul; Eosinophil % 1.5 %; Hematocrit 38 % (42-52); Hemoglobin 12.7 g/dl (14.0-18.0); Lymphocyte % 19.5 %; Mean Corpuscular HGB Conc 34 g/dl (31-36); Mean Corpuscular Hemoglobin 33 pg (27-31); Mean Corpuscular Volume 97 fL (80-94); Mean Platelet Volume 8.6 fL (7.4-10.4); Nucleated Red Blood Cells % 0; Platelet Count 131 10^3/ul (150-450); Red Cell Distribution Width 15 % (10.5-15); White Blood Count 9.8 10^3/ul (3.5-10.8)
[2018-09-05 20:27] LABS: INR 0.98 (0.77-1.02)
[2018-09-05 20:35] LABS: EGFR Non-African American 57.9 (>60)
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
[2018-09-05] MEDS: cefTRIAXone VIAL(*) 1,000 MG in NS 0.9% 50 ML* 50 ML IVPB SCH (21:39)
[2018-09-05] MEDS: Amitriptyline TAB* 50 MG PO SCH (21:46)
[2018-09-05] MEDS: Metoprolol Tartrate TAB* 50 mg PO SCH (21:47)
[2018-09-05] MEDS: Lactulose* 15 ML UDC PO SCH (21:47)
[2018-09-05] MEDS: Heparin VIAL(*) 5000 UNITS/ML VIAL (FIVE THOUSAND) SUBCUT SCH (21:48)
[2018-09-06] MEDS ORDERED: LORazepam INJ* 2 MG/ML 1 ML VIAL IV PUSH SCH (01:00)
[2018-09-06] MEDS: Heparin VIAL(*) 5000 UNITS/ML VIAL (FIVE THOUSAND) SUBCUT SCH ×3 (06:04→21:03)
[2018-09-06 06:13] LABS: Hematocrit 37 % (42-52); Hemoglobin 12.2 g/dl (14.0-18.0); Mean Corpuscular HGB Conc 33 g/dl (31-36); Mean Corpuscular Hemoglobin 32 pg (27-31); Mean Corpuscular Volume 98 fL (80-94); Red Blood Count 3.77 10^6/ul (4.00-5.40); Red Cell Distribution Width 15 % (10.5-15); White Blood Count 7.8 10^3/ul (3.5-10.8)
[2018-09-06 06:33] LABS: ABS Basophils 0.1 10^3/ul (0-0.2); ABS Eosinophils 0.2 10^3/ul (0-0.6); ABS Lymphocytes 2.1 10^3/ul (1.0-4.8); ABS Monocytes 1.3 10^3/ul (0-0.8); ABS Neutrophils 4.2 10^3/ul (1.5-7.7); ABS Nucleated RBC 0 10^3/ul; Eosinophil % 2.1 %; Lymphocyte % 26.8 %; Mean Platelet Volume 9.5 fL (7.4-10.4); Nucleated Red Blood Cells % 0.1; Platelet Count 143 10^3/ul (150-450)
[2018-09-06 06:40] LABS: EGFR Non-African American 71.4 (>60)
[2018-09-06] MEDS: Omeprazole CAP* 20 MG PO SCH (08:27)
[2018-09-06] MEDS: Metoprolol Tartrate TAB* 50 mg PO SCH ×2 (08:27→21:03)
[2018-09-06] MEDS: Multivitamins/Minerals TAB PO SCH (08:28)
[2018-09-06] MEDS: Thiamine TAB* 100 MG TAB PO SCH (08:28)
[2018-09-06] MEDS: Lactulose* 15 ML UDC PO SCH ×3 (08:28→21:03)
[2018-09-06] MEDS: Folic Acid TAB* 1 MG PO SCH (08:28)
[2018-09-06] MEDS ORDERED: Multivitamins/Minerals TAB PO SCH (09:00)
[2018-09-06] MEDS ORDERED: Folic Acid TAB* 1 MG PO SCH (09:00)
[2018-09-06] MEDS ORDERED: Thiamine TAB* 100 MG TAB PO SCH (09:00)
[2018-09-06] MEDS: Nicotine Inhaler* 10 MG AMP INH PRN ×2 (11:59→19:31)
[2018-09-06] MEDS ORDERED: Mouth Piece, Nicotine* 1 EACH CARTRIDGE INH ONE (12:00)
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
--- NOTE | 2018-09-06 18:55 | PN ---
Subjective Date of Service: 09/06/18 Interval History: Pt seen and examined. Meds and labs reviewed. CC: N/A ROS: Denied ARMAS/dizziness, F/C, N/V, CP, SOB, increased cough, sputum production , abd pain, diarrhea, constipation, dysuria, myalgias, arthralgias, throat pain , and new skin lesions. The rest of the 14 point ROS are unremarkable. PHYSICAL EXAM: GEN APPEARANCE: Awake, not in acute distress, Ox3 HEENT: NC/AT, PERRLA, moist oral mucosa, (-) throat erythema NECK: Soft, supple, (-) cervical LAD, (-)JVD HEART: S1S2 WNL, RRR, No MRG CHEST: CTA, BL, GAE, No W/R/R ABD: Soft, ND/NT, NABS 4x Q EXT: No C/C/E SKIN: Warm to touch PSYCH: No active psychosis, hallucinations, depression, SI/HI Objective Active Medications: Acetaminophen (Tylenol Tab*) 650 mg PO Q4H PRN PRN Reason: PAIN Last Admin: 09/06/18 03:10 Dose: 650 mg Amitriptyline HCl (Elavil Tab*) 50 mg PO BEDTIME [facility] Last Admin: 09/05/18 21:46 Dose: Not Given Folic Acid (Folvite Tab*) 1 mg PO DAILY [facility] Last Admin: 09/06/18 08:28 Dose: 1 mg Heparin Sodium (Porcine) (Heparin Vial(*)) 5,000 units SUBCUT Q8HR [facility] Last Admin: 09/06/18 13:19 Dose: 5,000 units Ceftriaxone Sodium 1,000 mg/ (Sodium Chloride) 50 mls @ 200 mls/hr IVPB Q24H [facility] Last Admin: 09/05/18 21:39 Dose: 200 mls/hr Lactulose (Lactulose*) 15 ml PO TID [facility] Last Admin: 09/06/18 13:20 Dose: Not Given Lorazepam (Ativan Inj*) 0 - 3 mg IV PUSH .PER [facility] PROTOCOL [facility]; Protocol Metoprolol Tartrate (Lopressor Tab*) 50 mg PO BID [facility] Last Admin: 09/06/18 08:27 Dose: 50 mg Multivitamins/Minerals (Theragran/Minerals Tab*) 1 tab PO DAILY [facility] Last Admin: 09/06/18 08:28 Dose: 1 tab Nicotine (Nicotine Inhaler*) 10 mg INH Q2H PRN PRN Reason: CRAVING Last Admin: 09/06/18 11:59 Dose: 10 mg Omeprazole (Prilosec Cap*) 20 mg PO DAILY [facility] Last Admin: 09/06/18 08:27 Dose: 20 mg Ondansetron HCl (Zofran Inj*) 4 mg IV Q6H PRN PRN Reason: NAUSEA Thiamine HCl (Vitamin B-1 Tab*) 100 mg PO DAILY [facility] Last Admin: 09/06/18 08:28 Dose: 100 mg Vital Signs - 8 hr 09/06/18 09/06/18 09/06/18 11:23 11:40 12:50 Temperature Pulse Rate Respiratory Rate Blood Pressure 136/72 96/68 107/80 (mmHg) O2 Sat by Pulse Oximetry 09/06/18 09/06/18 09/06/18 13:47 15:03 15:10 Temperature 98.3 F Pulse Rate 91 Respiratory 16 Rate Blood Pressure 123/88 110/80 (mmHg) O2 Sat by Pulse 100 Oximetry 09/06/18 09/06/18 09/06/18 15:46 17:26 17:46 Temperature Pulse Rate Respiratory Rate Blood Pressure 121/89 120/91 135/95 (mmHg) O2 Sat by Pulse Oximetry Oxygen Devices in Use Now: None Result Diagrams: 09/06/18 05:36 09/06/18 05:36 Microbiology and Other Data: Microbiology 09/05/18 13:55 Urine Culture - Final Urine No Growth (<1,000 CFU/mL) Assess/Plan/Problems-Billing Assessment: - Patient Problems (1) Altered mental status Current Visit: Yes Status: Acute Code(s): R41.82 - ALTERED MENTAL STATUS, UNSPECIFIED SNOMED Code(s): 119376799 Comment: -Likely due to UTI; reviewed MAR and pt does not seem to be scoring on WAM -Mentions that he usually drinks 1.5L of Vodka every day but stopped this last week and mentioned has mostly withdrawn at home -UTox (-) -Appreciate psych input -Continue Thiamine and MVI supplementations -Will check Methylmalonic acid and B12 levels (2) UTI (urinary tract infection) Current Visit: Yes Status: Acute Comment: -Continue Rocephin (3) GERD (gastroesophageal reflux disease) Current Visit: Yes Status: Acute Code(s): K21.9 - GASTRO-ESOPHAGEAL REFLUX DISEASE WITHOUT ESOPHAGITIS SNOMED Code(s): 476762744 Comment: -Continue Omeprazole (4) DVT prophylaxis Current Visit: No Status: Acute Code(s): ROZ3516 - SNOMED Code(s): 303132989 Comment: -Continue Heparin SQq8H Status and Disposition: -For possible D/C in AM if no signs of WD and if pt remains hemodynamically stable
[2018-09-06] MEDS: cefTRIAXone VIAL(*) 1,000 MG in NS 0.9% 50 ML* 50 ML IVPB SCH (21:03)
[2018-09-06] MEDS: Amitriptyline TAB* 50 MG PO SCH (21:03)
[2018-09-07] MEDS: Heparin VIAL(*) 5000 UNITS/ML VIAL (FIVE THOUSAND) SUBCUT SCH ×2 (05:41→13:10)
[2018-09-07 05:55] LABS: ABS Basophils 0.1 10^3/ul (0-0.2); ABS Eosinophils 0.2 10^3/ul (0-0.6); ABS Monocytes 1.1 10^3/ul (0-0.8); ABS Neutrophils 3.1 10^3/ul (1.5-7.7); ABS Nucleated RBC 0 10^3/ul; Eosinophil % 2.9 %; Hematocrit 38 % (42-52); Hemoglobin 12.6 g/dl (14.0-18.0); Lymphocyte % 31.8 %; Mean Corpuscular HGB Conc 34 g/dl (31-36); Mean Corpuscular Hemoglobin 33 pg (27-31); Mean Corpuscular Volume 98 fL (80-94); Mean Platelet Volume 8.4 fL (7.4-10.4); Nucleated Red Blood Cells % 0.1; Platelet Count 158 10^3/ul (150-450); Red Blood Count 3.84 10^6/ul (4.00-5.40); Red Cell Distribution Width 15 % (10.5-15); White Blood Count 6.4 10^3/ul (3.5-10.8)
[2018-09-07 06:12] LABS: EGFR Non-African American 65.9 (>60)
[2018-09-07] MEDS: Multivitamins/Minerals TAB PO SCH (08:09)
[2018-09-07] MEDS: Nicotine Inhaler* 10 MG AMP INH PRN (08:09)
[2018-09-07] MEDS: Omeprazole CAP* 20 MG PO SCH (08:09)
[2018-09-07] MEDS: Metoprolol Tartrate TAB* 50 mg PO SCH (08:09)
[2018-09-07] MEDS: Thiamine TAB* 100 MG TAB PO SCH (08:09)
[2018-09-07] MEDS: Lactulose* 15 ML UDC PO SCH ×2 (08:09→13:10)
[2018-09-07] MEDS: Folic Acid TAB* 1 MG PO SCH (08:09)
[2018-09-07] MEDS ORDERED: Magnesium Sulfate IV* 3 GM in NS 0.9% 100 ML* 100 ML IVPB ONE (13:36)
[2018-09-07 13:55] VITALS: BP 104/73
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
== END 2018-09-07 15:50 | disposition home or self-care (01) ==
LOC: ED 12:33 → MEDTELE 19:52
PROVIDERS: ADMIT Internal Medicine; ATTEND Student in an Organized Health Care Education/Training Program
DX: R41.82 Altered mental status, unspecified (principal); N39.0 Urinary tract infection, site not specified; K21.9 Gastro-esophageal reflux disease without esophagitis; I10 Essential (primary) hypertension; F17.210 Nicotine dependence, cigarettes, uncomplicated; R42 Dizziness and giddiness; J02.9 Acute pharyngitis, unspecified; F10.20 Alcohol dependence, uncomplicated; R44.3 Hallucinations, unspecified
CPT/HCPCS: 36415; 70450; 80048; 80053; 80307; 80320; 80329; 81003; 81015; 82140; 82150; 82565; 82607; 83690; 83735; 83921; 84100; 84443; 84520; 85025; 85610; 85730; 87086; 93005; 96365; 96375; 99284; 99406; A9270-GY; G0378; G0480; J0696; J1644; J2060; J3411; J3475

== ENCOUNTER 2018-11-01 08:31 | Emergency (ER) | payer SELFPAY ==
[2018-11-01] MEDS ORDERED: Bupivacaine 0.25% SDV PF* 10 ML VIAL INJ ONE (08:47)
[2018-11-01] MEDS ORDERED: Lidocaine 1% INJ* 10 MG/ML 30 ML SDV ONE (08:50)
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
[2018-11-01] MEDS ORDERED: Oxymetazoline 0.05% NASAL SPR* 15 ML BTL RIGHT NARE ONE (09:37)
[2018-11-01 10:38] VITALS: BP 129/77
== END 2018-11-01 10:37 | disposition home or self-care (01) ==
LOC: ED 08:31
DX: S03.2XXA Dislocation of tooth, initial encounter (principal); S00.83XA Contusion of other part of head, initial encounter; S09.90XA Unspecified injury of head, initial encounter; R04.0 Epistaxis; W01.0XXA Fall on same level from slipping, tripping and stumbling without subsequent striking against object, initial encounter; Y92.9 Unspecified place or not applicable; I10 Essential (primary) hypertension; K21.9 Gastro-esophageal reflux disease without esophagitis; Z89.612 Acquired absence of left leg above knee; F17.210 Nicotine dependence, cigarettes, uncomplicated
CPT/HCPCS: 70450; 70486; 96372; 99282; A9270-GY; J3490

== ENCOUNTER 2019-02-22 15:55 | Inpatient (IN) | payer OTHER ==
[2019-02-22 16:55] LABS: ABS Basophils 0.1 10^3/ul (0-0.2); ABS Eosinophils 0.1 10^3/ul (0-0.6); ABS Lymphocytes 2.6 10^3/ul (1.0-4.8); ABS Monocytes 0.8 10^3/ul (0-0.8); ABS Neutrophils 4.9 10^3/ul (1.5-7.7); Eosinophil % 1.5 %; Hematocrit 42 % (42-52); Hemoglobin 14.1 g/dL (14.0-18.0); Lymphocyte % 30.3 %; Mean Corpuscular HGB Conc 34 g/dL (31-36); Mean Corpuscular Hemoglobin 33 pg (27-31); Mean Corpuscular Volume 96 fL (80-94); Mean Platelet Volume 8.1 fL (7.4-10.4); Platelet Count 163 10^3/uL (150-450); Red Blood Count 4.33 10^6 /uL (4.18-5.48); Red Cell Distribution Width 14 % (10.5-15); White Blood Count 8.5 10^3/uL (3.5-10.8)
[2019-02-22 17:13] LABS: Albumin 4.5 g/dL (3.2-5.2); Albumin/Globulin Ratio 1.5 (1-3); BUN/Creatinine Ratio 13.6 (8-20); Calcium 9.5 mg/dL (8.6-10.3); EGFR African American 41.9 (>60); EGFR Non-African American 34.6 (>60); Potassium 3.8 mmol/L (3.5-5.0); Total Bilirubin 0.2 mg/dL (0.2-1.0); Total Protein 7.5 g/dL (6.4-8.9)
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
[2019-02-22] MEDS ORDERED: NS 0.9% 1000 ML** 2,000 ML IV ONE (19:26)
[2019-02-23] MEDS ORDERED: Ondansetron ODT TAB* 4 MG ONE (05:57)
[2019-02-23] MEDS ORDERED: Ondansetron ODT TAB* 4 MG PO ONE (05:57)
[2019-02-23] MEDS ORDERED: Lorazepam PYXIS KEY PRN (06:31)
[2019-02-23] MEDS ORDERED: LORazepam INJ* 2 MG/ML 1 ML VIAL IV PUSH ONE (06:31)
[2019-02-23] MEDS ORDERED: Lorazepam PYXIS KEY ONE (06:36)
--- NOTE | 2019-02-23 07:18 | ED ---
Progress - Progress Note Progress Note: This pt was signed out from Dr. Burleson, pending disposition, awaiting hospitalist consult. Dr. August, hospitalist, came to see the pt in the ED. Dr. August will admit the pt to her services for alcohol withdrawal. Course/Dx - Diagnoses Provider Diagnoses: Alcohol intoxication, Alcohol withdrawal Discharge - Sign-Out/Discharge Documenting (check all that apply): Patient Departure - Admit to [facility], Receiving Sign-Out Receiving patient FROM: Charlie Burleson All imaging exams completed and their final reports reviewed: No Studies Patient Received Moderate/Deep Sedation with Procedure: No - Discharge Plan Condition: Stable Disposition: ADMITTED TO [facility] - Attestation Statements Document Initiated by Scribe: Yes Documenting Scribe: Thelma Ash Provider For Whom Scribe is Documenting (Include Credential): Bharath Posey MD Scribe Attestation: Thelma Griffith, scribed for Bharath Posey MD on 02/23/19 at 1007. Status of Scribe Document: Ready
[2019-02-23] MEDS ORDERED: Thiamine IV* 100 MG/ML 2 ML VIAL IM ONE (07:39)
[2019-02-23] MEDS ORDERED: LORazepam TAB(*) 1 MG PO SCH (08:00)
[2019-02-23] MEDS: Multivitamins/Minerals TAB PO SCH (09:44)
[2019-02-23] MEDS: Thiamine TAB* 100 MG TAB PO SCH (09:44)
[2019-02-23] MEDS: Folic Acid TAB* 1 MG PO SCH (09:44)
[2019-02-23] MEDS: Metoprolol Tartrate TAB* 50 mg PO SCH ×2 (09:44→21:04)
[2019-02-23] MEDS: NS 0.9% 1000 ML** 1,000 ML IV SCH ×3 (09:47→23:45)
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
[2019-02-23 13:31] LABS: Urine Benzodiazepine Screen None Detected (None Detect); Urine Opiates Screen None Detected (None Detect)
[2019-02-23] MEDS: Heparin VIAL(*) 5000 UNITS/ML VIAL (FIVE THOUSAND) SUBCUT SCH ×2 (14:22→21:05)
[2019-02-23 15:22] LABS: Urine Appearance Clear; Urine Bilirubin Negative (Negative); Urine Blood Negative (Negative); Urine Color Yellow; Urine Glucose Negative (Negative); Urine Ketones Trace (Negative); Urine Nitrite Negative (Negative); Urine Protein Negative (Negative); Urine Specific Gravity 1.021 (1.010-1.030); Urine Urobilinogen Negative (Negative)
[2019-02-23 15:45] LABS: Urine Creatinine Concentration 185.72 mg/dL
[2019-02-24] MEDS: Heparin VIAL(*) 5000 UNITS/ML VIAL (FIVE THOUSAND) SUBCUT SCH ×3 (04:49→21:20)
[2019-02-24] MEDS: Acetaminophen TAB* 325 MG PO PRN ×2 (04:49→23:55)
[2019-02-24] MEDS: NS 0.9% 1000 ML** 1,000 ML IV SCH ×3 (06:30→21:16)
[2019-02-24 07:42] LABS: ABS Basophils 0.1 10^3/ul (0-0.2); ABS Eosinophils 0.2 10^3/ul (0-0.6); ABS Lymphocytes 1.9 10^3/ul (1.0-4.8); ABS Monocytes 0.9 10^3/ul (0-0.8); ABS Neutrophils 2.4 10^3/ul (1.5-7.7); Eosinophil % 3.6 %; Hematocrit 36 % (42-52); Hemoglobin 12.1 g/dL (14.0-18.0); Lymphocyte % 34.8 %; Mean Corpuscular HGB Conc 34 g/dL (31-36); Mean Corpuscular Hemoglobin 32 pg (27-31); Mean Corpuscular Volume 96 fL (80-94); Nucleated Red Blood Cells % 0.1; Platelet Count 129 10^3/uL (150-450); Red Blood Count 3.74 10^6 /uL (4.18-5.48); Red Cell Distribution Width 13 % (10.5-15); White Blood Count 5.5 10^3/uL (3.5-10.8)
[2019-02-24 08:01] LABS: BUN/Creatinine Ratio 17.1 (8-20); Calcium 8.8 mg/dL (8.6-10.3); EGFR African American 121.3 (>60); EGFR Non-African American 100.3 (>60); Potassium 3.7 mmol/L (3.5-5.0)
--- NOTE | 2019-02-24 09:26 | PN ---
Subjective Date of Service: 02/24/19 Interval History: HOSPITALIST PROGRESS NOTE Patient seen and examined at bedside. Care reviewed and d/w Romaine Monahan RN. He's in good spirits today. States he feels "midway" through withdrawal. Denies hallucinations. Had N/V, but tolerating diet now. Family History: Unchanged from Admission Social History: Unchanged from Admission Past Medical History: Unchanged from Admission Objective Active Medications: Acetaminophen (Tylenol Tab*) 650 mg PO Q4H PRN PRN Reason: PAIN Last Admin: 02/24/19 04:49 Dose: 650 mg Folic Acid (Folvite Tab*) 1 mg PO DAILY [facility] Last Admin: 02/23/19 09:44 Dose: 1 mg Heparin Sodium (Porcine) (Heparin Vial(*)) 5,000 units SUBCUT Q8HR [facility] Last Admin: 02/24/19 04:49 Dose: 5,000 units Sodium Chloride (Ns 0.9% 1000 Ml) 1,000 mls @ 150 mls/hr IV PER RATE [facility] Last Admin: 02/24/19 06:30 Dose: 150 mls/hr Lorazepam (Ativan Tab(*)) 0 - 6 mg PO .PER [facility] PROTOCOL [facility]; Protocol Metoprolol Tartrate (Lopressor Tab*) 50 mg PO BID [facility] Last Admin: 02/23/19 21:04 Dose: 50 mg Miscellaneous (Ativan Pyxis Chaudhry) 1 ea N/A .ATIVAN IV CHAUDHRY PRN PRN Reason: PYXIS CHAUDHRY Multivitamins/Minerals (Theragran/Minerals Tab*) 1 tab PO DAILY [facility] Last Admin: 02/23/19 09:44 Dose: 1 tab Thiamine HCl (Vitamin B-1 Tab*) 100 mg PO DAILY [facility] Last Admin: 02/23/19 09:44 Dose: 100 mg Vital Signs - 8 hr 02/24/19 02/24/19 02/24/19 03:00 03:50 04:55 Temperature 99.2 F 98.2 F Pulse Rate 66 61 Respiratory 18 16 18 Rate Blood Pressure 165/96 163/102 (mmHg) O2 Sat by Pulse 100 100 Oximetry 02/24/19 02/24/19 02/24/19 04:56 07:19 08:00 Temperature 98.2 F 99.0 F Pulse Rate 61 62 Respiratory 18 20 18 Rate Blood Pressure 163/102 172/99 (mmHg) O2 Sat by Pulse 100 100 Oximetry Oxygen Devices in Use Now: None Appearance: Pleasant middle aged male sitting up in bed in NAD. Eyes: No Scleral Icterus Ears/Nose/Mouth/Throat: Mucous Membranes Moist Neck: Trachea Midline Respiratory: Symmetrical Chest Expansion and Respiratory Effort, Clear to Auscultation Cardiovascular: RRR - Normal S1 and S2 Abdominal: NL Sounds; No Tenderness; No Distention Extremities: - - S/p L AKA Neurological: Alert and Oriented x 3, NL Muscle Strength and Tone Result Diagrams: 02/24/19 07:30 02/24/19 07:30 Assess/Plan/Problems-Billing Assessment: Mr Simon is a 48yo M with PMH of HTN, bipolar disorder, Alcoholism, who presented to ED requesting ETOH detox. - Patient Problems (1) Alcohol withdrawal Comment: - Continue [facility] protocol. Appears to be mild at this time, but as per patient he had episodes in the past there were severe, with hallucinations, when he tried to go through withdrawal at home before. (2) Alcohol use disorder, severe, dependence Comment: - He states his alcohol use has escalated to the point he now needs to drink in the morning to be able to go to work, and "count the hours" to go back home and have another drink. Drinking up to 1 bottle of vodka a day, "much more on the weekends". - Aware he has a serious problem and motivated to quit. - Interested in inpatient rehab, followed by outpatient counseling. - cafeteria worker consult requested to assist with discharge plan. (3) JOSÉ (acute kidney injury) Comment: - Pre renal in the setting of dehydration. - Resolved. (4) Hypertension Comment: - Trending up with withdrawal. - Continue Metoprolol and add Hydralazine PRN. (5) DVT prophylaxis Comment: - SQ Heparin. (6) Full code status Comment: Status and Disposition: Inpatient.
[2019-02-24] MEDS ORDERED: hydrALAZINE IV* 20 MG/ML VIAL IV SLOW PU PRN (09:32)
[2019-02-24] MEDS: Multivitamins/Minerals TAB PO SCH (10:29)
[2019-02-24] MEDS: Thiamine TAB* 100 MG TAB PO SCH (10:29)
[2019-02-24] MEDS: Folic Acid TAB* 1 MG PO SCH (10:29)
[2019-02-24] MEDS: Metoprolol Tartrate TAB* 50 mg PO SCH ×2 (10:29→21:20)
[2019-02-24] MEDS: Pantoprazole TAB * 40 MG TAB PO SCH (13:38)
[2019-02-25] MEDS: Heparin VIAL(*) 5000 UNITS/ML VIAL (FIVE THOUSAND) SUBCUT SCH ×3 (05:25→21:01)
[2019-02-25] MEDS: Acetaminophen TAB* 325 MG PO PRN (05:29)
[2019-02-25] MEDS: Metoprolol Tartrate TAB* 50 mg PO SCH ×2 (09:28→20:59)
[2019-02-25] MEDS: Multivitamins/Minerals TAB PO SCH (09:28)
[2019-02-25] MEDS: Folic Acid TAB* 1 MG PO SCH (09:28)
[2019-02-25] MEDS: Pantoprazole TAB * 40 MG TAB PO SCH (09:28)
[2019-02-25] MEDS: Thiamine TAB* 100 MG TAB PO SCH (09:28)
--- NOTE | 2019-02-25 19:43 | PN ---
Subjective Date of Service: 02/25/19 Interval History: Pt is feeling ok. He continues to feel as if he is withdrawing. He feels shaky. He last scored high enough to receive ativan this AM. Family History: Unchanged from Admission Social History: Unchanged from Admission Past Medical History: Unchanged from Admission Objective Active Medications: Acetaminophen (Tylenol Tab*) 650 mg PO Q4H PRN PRN Reason: PAIN Last Admin: 02/25/19 05:29 Dose: 650 mg Folic Acid (Folvite Tab*) 1 mg PO DAILY [facility] Last Admin: 02/25/19 09:28 Dose: 1 mg Heparin Sodium (Porcine) (Heparin Vial(*)) 5,000 units SUBCUT Q8HR [facility] Last Admin: 02/25/19 16:27 Dose: 5,000 units Hydralazine HCl (Apresoline Iv*) 5 mg IV SLOW PU Q6H PRN PRN Reason: SBP>170 DBP>110 Last Admin: 02/24/19 23:48 Dose: 5 mg Sodium Chloride (Ns 0.9% 1000 Ml) 1,000 mls @ 150 mls/hr IV PER RATE [facility] Last Admin: 02/24/19 21:16 Dose: 150 mls/hr Lorazepam (Ativan Tab(*)) 0 - 6 mg PO .PER [facility] PROTOCOL [facility]; Protocol Last Admin: 02/25/19 05:25 Dose: 2 mg Metoprolol Tartrate (Lopressor Tab*) 50 mg PO BID [facility] Last Admin: 02/25/19 09:28 Dose: 50 mg Miscellaneous (Ativan Pyxis Chaudhry) 1 ea N/A .ATIVAN IV CHAUDHRY PRN PRN Reason: PYXIS CHAUDHRY Multivitamins/Minerals (Theragran/Minerals Tab*) 1 tab PO DAILY [facility] Last Admin: 02/25/19 09:28 Dose: 1 tab Pantoprazole Sodium (Protonix Tab*) 40 mg PO DAILY [facility] Last Admin: 02/25/19 09:28 Dose: 40 mg Thiamine HCl (Vitamin B-1 Tab*) 100 mg PO DAILY [facility] Last Admin: 02/25/19 09:28 Dose: 100 mg Vital Signs - 8 hr 02/25/19 02/25/19 02/25/19 13:10 15:20 17:34 Temperature 97.9 F 98.2 F 98.1 F Pulse Rate 62 67 76 Respiratory 15 15 15 Rate Blood Pressure 132/95 157/97 153/101 (mmHg) O2 Sat by Pulse 100 100 100 Oximetry 02/25/19 02/25/19 18:59 19:00 Temperature 98.3 F Pulse Rate 69 Respiratory 16 16 Rate Blood Pressure 160/88 (mmHg) O2 Sat by Pulse 100 Oximetry Oxygen Devices in Use Now: None Appearance: Middle aged male sitting up in bed, NAD Eyes: No Scleral Icterus Ears/Nose/Mouth/Throat: Mucous Membranes Moist Respiratory: Symmetrical Chest Expansion and Respiratory Effort Cardiovascular: NL Sounds; No Murmurs; No JVD, RRR, No Edema Abdominal: NL Sounds; No Tenderness; No Distention Extremities: No Clubbing, Cyanosis Skin: No Nodules or Sclerosis Neurological: Alert and Oriented x 3 Result Diagrams: 02/24/19 07:30 02/24/19 07:30 Additional Lab and Data: Lab Results 02/22/19 02/22/19 Range/Units 16:50 16:50 WBC 8.5 (3.5-10.8) 10^3/uL RBC 4.33 (4.18-5.48) 10^6 /uL Hgb 14.1 (14.0-18.0) g/dL Hct 42 (42-52) % MCV 96 H (80-94) fL MCH 33 H (27-31) pg MCHC 34 (31-36) g/dL RDW 14 (10.5-15) % Plt Count 163 (150-450) 10^3/uL MPV 8.1 (7.4-10.4) fL Neut % (Auto) 57.2 % Lymph % (Auto) 30.3 % [place] % (Auto) 9.7 % Eos % (Auto) 1.5 % Baso % (Auto) 1.3 % Absolute Neuts (auto) 4.9 (1.5-7.7) 10^3/ul Absolute Lymphs (auto) 2.6 (1.0-4.8) 10^3/ul Absolute Monos (auto) 0.8 (0-0.8) 10^3/ul Absolute Eos (auto) 0.1 (0-0.6) 10^3/ul Absolute Basos (auto) 0.1 (0-0.2) 10^3/ul Absolute Nucleated RBC 0.0 10^3/ul Nucleated RBC % 0.0 Sodium 134 L (135-145) mmol/L Potassium 3.8 (3.5-5.0) mmol/L Chloride 99 L (101-111) mmol/L Carbon Dioxide 21 L (22-32) mmol/L Anion Gap 14 H (2-11) mmol/L BUN 28 H (6-24) mg/dL Creatinine 2.06 H (0.67-1.17) mg/dL Est GFR ( Amer) 41.9 (>60) Est GFR (Non-Af Amer) 34.6 (>60) BUN/Creatinine Ratio 13.6 (8-20) Glucose 102 H (70-100) mg/dL Calcium 9.5 (8.6-10.3) mg/dL Total Bilirubin 0.20 (0.2-1.0) mg/dL AST 30 (13-39) U/L ALT 19 (7-52) U/L Alkaline Phosphatase 75 (34-104) U/L Total Protein 7.5 (6.4-8.9) g/dL Albumin 4.5 (3.2-5.2) g/dL Globulin 3.0 (2-4) g/dL Albumin/Globulin Ratio 1.5 (1-3) Serum Alcohol 341 H (<10) mg/dL Assess/Plan/Problems-Billing Mr Simon is a 48yo M with PMH of HTN, bipolar disorder and alcoholism, who presented to ED requesting ETOH detox. - Patient Problems (1) Alcohol withdrawal Current Visit: Yes Status: Acute Code(s): F10.239 - ALCOHOL DEPENDENCE WITH WITHDRAWAL, UNSPECIFIED SNOMED Code(s): 612665569 Comment: Pt improving. Likely medically stable for d/c tomorrow. Monitor need for ativan. Social work is working on getting pt inpatient bed offer. If not given a bed tomorrow he should be d/tiffanie home with outpatient resources. (2) Hypertension Current Visit: Yes Status: Acute Code(s): I10 - ESSENTIAL (PRIMARY) HYPERTENSION SNOMED Code(s): 63970244 Comment: BP remains moderately elevated. Will add amlodipine 5mg daily to his home regimen of metoprolol. (3) DVT prophylaxis Current Visit: Yes Status: Acute Code(s): UHM0397 - SNOMED Code(s): 687005520 Comment: SQ Heparin (4) Full code status Current Visit: Yes Status: Acute Code(s): Z78.9 - OTHER SPECIFIED HEALTH STATUS SNOMED Code(s): 997072422 Comment: Status and Disposition: Inpatient.
[2019-02-25] MEDS: amLODIPine TAB* 5 MG PO SCH (21:01)
[2019-02-25] MEDS: NS 0.9% 1000 ML** 1,000 ML IV SCH (21:03)
[2019-02-26] MEDS: Acetaminophen TAB* 325 MG PO PRN (01:05)
[2019-02-26] MEDS: Heparin VIAL(*) 5000 UNITS/ML VIAL (FIVE THOUSAND) SUBCUT SCH ×3 (04:56→21:31)
[2019-02-26] MEDS: NS 0.9% 1000 ML** 1,000 ML IV SCH (04:56)
[2019-02-26] MEDS: Multivitamins/Minerals TAB PO SCH (08:52)
[2019-02-26] MEDS: Metoprolol Tartrate TAB* 50 mg PO SCH ×2 (08:52→21:30)
[2019-02-26] MEDS: Folic Acid TAB* 1 MG PO SCH (08:52)
[2019-02-26] MEDS: Pantoprazole TAB * 40 MG TAB PO SCH (08:53)
[2019-02-26] MEDS: amLODIPine TAB* 5 MG PO SCH (08:53)
[2019-02-26] MEDS: Thiamine TAB* 100 MG TAB PO SCH (08:54)
[2019-02-26] MEDS ORDERED: amLODIPine TAB* 5 MG PO ONE (08:55)
[2019-02-26] MEDS ORDERED: traMADol TAB* 50 MG PO ONE ×2 (09:05→22:21)
--- NOTE | 2019-02-26 18:27 | PN ---
Subjective Date of Service: 02/26/19 Interval History: feeling improved Family History: Unchanged from Admission Social History: Unchanged from Admission Past Medical History: Unchanged from Admission Objective Active Medications: Acetaminophen (Tylenol Tab*) 650 mg PO Q4H PRN PRN Reason: PAIN Last Admin: 02/26/19 01:05 Dose: 650 mg Amlodipine Besylate (Norvasc Tab*) 10 mg PO DAILY [facility] Folic Acid (Folvite Tab*) 1 mg PO DAILY [facility] Last Admin: 02/26/19 08:52 Dose: 1 mg Heparin Sodium (Porcine) (Heparin Vial(*)) 5,000 units SUBCUT Q8HR [facility] Last Admin: 02/26/19 16:48 Dose: 5,000 units Hydralazine HCl (Apresoline Iv*) 5 mg IV SLOW PU Q6H PRN PRN Reason: SBP>170 DBP>110 Last Admin: 02/24/19 23:48 Dose: 5 mg Lorazepam (Ativan Tab(*)) 0 - 6 mg PO .PER [facility] PROTOCOL [facility]; Protocol Last Admin: 02/25/19 05:25 Dose: 2 mg Metoprolol Tartrate (Lopressor Tab*) 50 mg PO BID [facility] Last Admin: 02/26/19 08:52 Dose: 50 mg Miscellaneous (Ativan Pyxis Chaudhry) 1 ea N/A .ATIVAN IV CHAUDHRY PRN PRN Reason: PYXIS CHAUDHRY Multivitamins/Minerals (Theragran/Minerals Tab*) 1 tab PO DAILY [facility] Last Admin: 02/26/19 08:52 Dose: 1 tab Pantoprazole Sodium (Protonix Tab*) 40 mg PO DAILY [facility] Last Admin: 02/26/19 08:53 Dose: 40 mg Thiamine HCl (Vitamin B-1 Tab*) 100 mg PO DAILY [facility] Last Admin: 02/26/19 08:54 Dose: 100 mg Vital Signs - 8 hr 02/26/19 02/26/19 11:02 12:53 Temperature 99.5 F Pulse Rate 58 Respiratory 16 17 Rate Blood Pressure 128/96 (mmHg) O2 Sat by Pulse 100 Oximetry Oxygen Devices in Use Now: None Appearance: NAD Eyes: No Scleral Icterus Ears/Nose/Mouth/Throat: NL Teeth, Lips, Gums, Clear Oropharnyx Neck: NL Appearance and Movements; NL JVP Respiratory: Symmetrical Chest Expansion and Respiratory Effort, Clear to Auscultation Cardiovascular: RRR, - - 2/6 MOLLY Abdominal: NL Sounds; No Tenderness; No Distention Lymphatic: No Cervical Adenopathy Neurological: Alert and Oriented x 3 Result Diagrams: 02/24/19 07:30 02/24/19 07:30 Additional Lab and Data: Lab Results 02/22/19 02/22/19 Range/Units 16:50 16:50 WBC 8.5 (3.5-10.8) 10^3/uL RBC 4.33 (4.18-5.48) 10^6 /uL Hgb 14.1 (14.0-18.0) g/dL Hct 42 (42-52) % MCV 96 H (80-94) fL MCH 33 H (27-31) pg MCHC 34 (31-36) g/dL RDW 14 (10.5-15) % Plt Count 163 (150-450) 10^3/uL MPV 8.1 (7.4-10.4) fL Neut % (Auto) 57.2 % Lymph % (Auto) 30.3 % [place] % (Auto) 9.7 % Eos % (Auto) 1.5 % Baso % (Auto) 1.3 % Absolute Neuts (auto) 4.9 (1.5-7.7) 10^3/ul Absolute Lymphs (auto) 2.6 (1.0-4.8) 10^3/ul Absolute Monos (auto) 0.8 (0-0.8) 10^3/ul Absolute Eos (auto) 0.1 (0-0.6) 10^3/ul Absolute Basos (auto) 0.1 (0-0.2) 10^3/ul Absolute Nucleated RBC 0.0 10^3/ul Nucleated RBC % 0.0 Sodium 134 L (135-145) mmol/L Potassium 3.8 (3.5-5.0) mmol/L Chloride 99 L (101-111) mmol/L Carbon Dioxide 21 L (22-32) mmol/L Anion Gap 14 H (2-11) mmol/L BUN 28 H (6-24) mg/dL Creatinine 2.06 H (0.67-1.17) mg/dL Est GFR ( Amer) 41.9 (>60) Est GFR (Non-Af Amer) 34.6 (>60) BUN/Creatinine Ratio 13.6 (8-20) Glucose 102 H (70-100) mg/dL Calcium 9.5 (8.6-10.3) mg/dL Total Bilirubin 0.20 (0.2-1.0) mg/dL AST 30 (13-39) U/L ALT 19 (7-52) U/L Alkaline Phosphatase 75 (34-104) U/L Total Protein 7.5 (6.4-8.9) g/dL Albumin 4.5 (3.2-5.2) g/dL Globulin 3.0 (2-4) g/dL Albumin/Globulin Ratio 1.5 (1-3) Serum Alcohol 341 H (<10) mg/dL Assess/Plan/Problems-Billing Mr Simon is a 48yo M with PMH of HTN, bipolar disorder and alcoholism, who presented to ED requesting ETOH detox. - Patient Problems (1) Alcohol withdrawal Comment: Decreasing need on [facility] protocol Monitor need for ativan. Social work is working on getting pt inpatient bed offer -plan on home tomorrow (2) Hypertension Status: Acute Comment: norvasc doubled to 10mg c/w metoprolol. (3) DVT prophylaxis Comment: SQ Heparin Status and Disposition: Inpatient.
[2019-02-27] MEDS: Heparin VIAL(*) 5000 UNITS/ML VIAL (FIVE THOUSAND) SUBCUT SCH (05:47)
[2019-02-27] MEDS: Thiamine TAB* 100 MG TAB PO SCH (08:35)
[2019-02-27] MEDS: Metoprolol Tartrate TAB* 50 mg PO SCH (08:36)
[2019-02-27] MEDS: Multivitamins/Minerals TAB PO SCH (08:36)
[2019-02-27] MEDS: Pantoprazole TAB * 40 MG TAB PO SCH (08:36)
[2019-02-27] MEDS: Folic Acid TAB* 1 MG PO SCH (08:36)
[2019-02-27] MEDS ORDERED: amLODIPine TAB* 5 MG PO SCH (09:00)
[2019-02-27 15:13] VITALS: BP 124/70
--- NOTE | 2019-02-28 04:27 | DS ---
CC: Dr. Weldon * DISCHARGE SUMMARY: DATE OF ADMISSION: 02/23/19 DATE OF DISCHARGE: 02/27/19 PRIMARY CARE PROVIDER: Dr. Weldon. DISPOSITION ON DISCHARGE: To home. CONDITION ON DISCHARGE: Improved. PRIMARY DIAGNOSES: 1. Alcohol withdrawal. 2. Acute kidney failure. SECONDARY DIAGNOSES: Include: 1. Hypertension. 2. Bipolar disorder. 3. History of alcoholism. 4. Tobacco abuse. MEDICATION ON DISCHARGE: Include: 1. Metoprolol tartrate 50 mg twice daily. 2. Amlodipine 10 mg daily. PERTINENT LABS: Creatinine on presentation 2.0, creatinine on discharge 0.82. HISTORY OF PRESENT ILLNESS AND HOSPITAL COURSE: This is a 48-year-old man whose past medical history is outlined in the history of present illness on the day of admission including hypertension and history of alcoholism, who presented to the hospital requesting assistance with alcohol withdrawal. He was already withdrawing in the emergency room, therefore hospitalist service was consulted for admission. He was admitted to the hospital, placed on the [facility] protocol and did well with his alcohol withdrawal. His hospital stay was notable for uncontrolled hypertension and amlodipine was added and titrated up to 10 mg with success. His discharge blood pressures was 124/70. Heart rates ranging from 56s to 70s with the lower being while he was asleep and asymptomatic. There were no complications during the course of the patient's hospital stay. FOLLOWUP: 1. Follow up on blood pressure and heart rate, on medications. 2. Encouraged continued tobacco and alcohol cessation. 3. No other specific labs or vitals that need followup. Reasons to return to the hospital including, but not limited to, recurrent or worsening symptoms, chest pain, shortness of breath, nausea, vomiting, lightheadedness, loss of consciousness, near loss of consciousness, bleeding from any source, and inability to obtain or tolerate medications was discussed with the patient. He acknowledged understanding. TIME SPENT: Greater than 45 minutes was spent on the discharge of this patient , greater than half was spent [id number] with the patient. [id number]/[facility] #: [id number] JANNIE
== END 2019-02-27 15:40 | disposition home or self-care (01) | DRG 775 ==
LOC: ED 15:55 → MEDTELE 02-23 08:29
PROVIDERS: ADMIT Internal Medicine; ATTEND Internal Medicine
DX: F10.239 Alcohol dependence with withdrawal, unspecified (principal); N17.9 Acute kidney failure, unspecified; F10.229 Alcohol dependence with intoxication, unspecified; Y90.8 Blood alcohol level of 240 mg/100 ml or more; I10 Essential (primary) hypertension; F31.9 Bipolar disorder, unspecified; G47.30 Sleep apnea, unspecified; K21.9 Gastro-esophageal reflux disease without esophagitis; M19.90 Unspecified osteoarthritis, unspecified site; Z96.651 Presence of right artificial knee joint; F17.210 Nicotine dependence, cigarettes, uncomplicated; F41.9 Anxiety disorder, unspecified; F43.10 Post-traumatic stress disorder, unspecified; Z82.49 Family history of ischemic heart disease and other diseases of the circulatory system; Z83.3 Family history of diabetes mellitus; Z89.612 Acquired absence of left leg above knee; Z91.011 Allergy to milk products
CPT/HCPCS: 36415; 80048; 80053; 80307; 80320; 81003; 82570; 84300; 85025; 99285; A9270-GY; G0480; J0360; J1644; J2060; J3411